=== PATIENT | male | born 1980 | race Caucasian/White ===

== ENCOUNTER 2017-05-04 14:51 | Emergency (ER) | payer OTHER ==
[~2017-05-04] VITALS: Ht 162.6 cm; Wt 69.9 kg
[~2017-05-04 14:51] MED LIST: ATEN25TA2 PO
--- NOTE | 2017-05-04 14:51 | NUR ---
Patient was BIBA and taken to bed 08 via gurney per EMS.
[2017-05-04 14:55] VITALS: BP 136/98
--- NOTE | 2017-05-04 15:02 | NUR ---
PT 36 Y/O BIB AMBULANCE VIA GURNEY TO ER, PER PT STATED THAT HE WENT AND ADMITTED AT [facility] ABOUT 2 WKS AGO FOR SAME C/O LEG PAIN TO HIS RIGHT LEG, WHICH IS RADIATES TO RIGHT FOOT, PER PT SAID THAT HE IS NOT SUPPOSED TO WALK, ALSO HE SAID THAT HE HAS A BIG LUMP TO HIS MID THIGHT CLOSE TO GROIN AREA BUT HIS UNKNOWN CAUSE OF THAT. HE IS AA/O X4, RESP EVEN AND REGULAR, PRESENTLY HE HAS NOT ABLE TRANSFER SELF TO BED FROM [facility] AT THE TIME AND ASSISTED BY EMS AT THE TIME. CURRENTLY PT IN BED 8 THIS TIME, WILL CONTINUE OF CARE AND PROVIDE A SAFETY.
--- NOTE | 2017-05-04 15:36 | NUR ---
ER MD DR. NEWSOME EVLAUATING PT AT BEDSIDE.
--- NOTE | 2017-05-04 15:55 | NUR ---
US AT BEDSIDE.
[2017-05-04] MEDS ORDERED: oxyCODONE/APAP 5/325 MG 1 TAB TAB PO ONE (17:10)
[2017-05-04 17:45] VITALS: BP 136/88
--- NOTE | 2017-05-04 17:45 | NUR ---
Patient discharged with v/s stable. Written and verbal after care instructions given and explained. Patient alert, oriented and verbalized understanding of instructions. Ambulatory with CRUTCHES and steady gait. All questions addressed prior to discharge. ID band removed. Patient advised to follow up with PMD. Rx of NORCO 5MG-325MG TAB given. Patient educated on indication of medication including possible reaction and side effects. Opportunity to ask questions provided and answered.
== END 2017-05-04 17:45 | disposition home or self-care (01) ==
LOC: MED 14:51
DX: M54.40 Lumbago with sciatica, unspecified side (principal); I10 Essential (primary) hypertension; Z88.8 Allergy status to other drugs, medicaments and biological substances
CPT/HCPCS: 93971; 99284; Q0092

== ENCOUNTER 2017-09-07 16:41 | Emergency (ER) | payer OTHER ==
[~2017-09-07] VITALS: Ht 162.6 cm; Wt 68.0 kg
--- NOTE | 2017-09-07 16:45 | NUR ---
PT BIBA FOR GENERAL ILLNESS TO BED 4 Addendum: 09/07/17 at 1647 by [facility] BED 3
[2017-09-07 16:50] VITALS: BP 157/106
--- NOTE | 2017-09-07 16:54 | NUR ---
DR CARRASCO EVALUATING PT AT BEDSIDE
[2017-09-07] MEDS ORDERED: MULTIVITAMIN-12 10 ML, THIAMINE 100 MG, MAGNESIUM SULFATE 50% 2,000 MG, FOLIC ACID 5 MG... IV ONE ×5 (16:55)
--- NOTE | 2017-09-07 17:10 | NUR ---
DIZZY/WEAKNESS/headache. HX: HTN,ALCOHOLISM,HIGH CHOL.,RT. SCIATICA. NOT TAKING MEDS. PICKED UP FROM BUS STATION/TRANSIENT. DENIES N/V/D; SKIN IS PINK/WARM/DRY; AAOX4 WITH EVEN AND STEADY GAIT; LUNGS CLEAR BL; HR EVEN AND REGULAR; PT DENIES ANY FEVER, CP, SOB, OR COUGH AT THIS TIME; PATIENT STATES PAIN OF 10/10 AT THIS TIME; VSS; PATIENT POSITIONED FOR COMFORT; HOB ELEVATED; BEDRAILS UP X2; BED DOWN. ER MD MADE AWARE OF PT STATUS.
[2017-09-07 17:21] LABS: BASOPHILS # (AUTO) 0.3 K/uL (0.00-0.22); EOSINOPHILS % (AUTO) 0.7 % (0.0-4.0); HEMATOCRIT 46.5 % (36-52); HEMOGLOBIN 15.5 g/dL (12.0-18.0); LYMPHOCYTES % (AUTO) 18.7 % (20.5-51.1); MEAN CORPUSCULAR HEMOGLOBIN 30 pg (27-31); MEAN CORPUSCULAR HGB CONC 33 g/dL (33-37); MONOCYTES # (AUTO) 0.4 K/uL (0.8-1.0); MONOCYTES % (AUTO) 7.3 % (1.7-9.3); NEUTROPHILS # (AUTO) 3.4 K/uL (1.8-7.7); NEUTROPHILS % (AUTO) 68.2 % (42.2-75.2); PLATELET COUNT (AUTO) 231 K/uL (140-450); RED BLOOD CELL COUNT(AUTO) 5.17 MIL/uL (4.20-6.10); RED CELL DISTRIBUTION WIDTH 11.8 % (11.6-13.7); WHITE BLOOD COUNT (AUTO) 5.1 K/uL (4.8-10.8)
[2017-09-07 17:23] LABS: BASOPHILS % (AUTO) 5.1 % (0.0-2.0)
[2017-09-07 17:38] LABS: ALBUMIN 4.2 g/dL (3.4-5.0); CARBON DIOXIDE 27.1 mmol/L (21-32); CREATININE 0.6 mg/dL (0.7-1.3); TOTAL BILIRUBIN 0.3 mg/dL (0.0-1.0)
[2017-09-07 17:45] LABS: ANION GAP 15.5 (8-16); POTASSIUM 3.6 mmol/L (3.5-5.1)
--- NOTE | 2017-09-07 18:09 | NUR ---
PT SLEEPING AT THIS TIME. NO S/S OF RESPIRATORY DISTRESS NOTED. BP 136/89, HR 76, RR 15, O2 SAT 100%.
--- NOTE | 2017-09-07 19:05 | NUR ---
REPORT RECIEVED FROM ROSA M FIELD
--- NOTE | 2017-09-07 19:08 | NUR ---
REPORT GIVEN TO MARTINEZ SALOMON
[2017-09-07 19:23] VITALS: BP 136/89
--- NOTE | 2017-09-07 19:23 | NUR ---
DCPatient discharged with v/s stable. Written and verbal after care instructions given and explained. Patient verbalized understanding. Ambulatory with steady gait. All questions addressed prior to discharge. Advised to follow up with PMD.
== END 2017-09-07 19:23 | disposition home or self-care (01) ==
LOC: MED 16:41
DX: R51 Headache (principal); R05 Cough; I10 Essential (primary) hypertension; Z88.8 Allergy status to other drugs, medicaments and biological substances; F17.200 Nicotine dependence, unspecified, uncomplicated
CPT/HCPCS: 36415; 70450; 80053; 82948; 85025; 96365; 96366; 99285; A9153; J3411; J3475; J3490; J7030